=== PATIENT | male | born 1955 | race Caucasian/White ===

== ENCOUNTER → 2016-12-02 | Outpatient (CLI) | payer OTHER ==
[~2016-12-02] MED LIST: 'PARAFON FORTE500 M1 PO; CIPROFLOXACIN500 MG PO; FAMOTIDINE20 MG PO; LISINOPRIL20 MG PO; LOPRESSOR50 MG PO; MAPAP325 MG PO; MIRALAX POWDER17 G1 PO; NON-ASPIRIN325 MG PO; PYRIDIUM200 MG PO
== END | disposition home or self-care (01) ==
LOC: RAD 11:21
DX: M47.892 Other spondylosis, cervical region (principal)

== ENCOUNTER 2017-05-12 05:31 | Emergency (ER) | payer OTHER ==
[~2017-05-12] VITALS: Ht 175.2 cm; Wt 71.7 kg
[2017-05-12] MEDS ORDERED: METOPROLOL SUC100 M1 PO (05:43)
[2017-05-12] MEDS ORDERED: OMEPRAZOLE40 MG PO (05:43)
[2017-05-12] MEDS ORDERED: BENADRYL ALLERG25 M5 PO (07:37)
[2017-05-12] MEDS ORDERED: PERMETHRIN60 GM T (07:37)
[2017-05-12] MEDS ORDERED: NORCO 5-325 TA1 EACH PO (07:40)
== END 2017-05-12 07:40 | disposition home or self-care (01) ==
LOC: ED 05:31
DX: S52.572A Other intraarticular fracture of lower end of left radius, initial encounter for closed fracture (principal); I10 Essential (primary) hypertension; F17.200 Nicotine dependence, unspecified, uncomplicated; Z79.899 Other long term (current) drug therapy; Z88.6 Allergy status to analgesic agent; W00.0XXA Fall on same level due to ice and snow, initial encounter; Y93.89 Activity, other specified; Y92.89 Other specified places as the place of occurrence of the external cause; Y99.9 Unspecified external cause status

== ENCOUNTER → 2017-07-31 | Outpatient (CLI) | payer OTHER ==
[~2017-07-31] MED LIST changes: +BENADRYL ALLERG25 M5 PO; +METOPROLOL SUC100 M1 PO; +NORCO 5-325 TA1 EACH PO; +OMEPRAZOLE40 MG PO; +PERMETHRIN60 GM T
== END | disposition home or self-care (01) ==
LOC: RAD 11:51
DX: J44.9 Chronic obstructive pulmonary disease, unspecified (principal); I10 Essential (primary) hypertension; F17.200 Nicotine dependence, unspecified, uncomplicated

== ENCOUNTER → 2017-09-13 | Outpatient (CLI) | payer OTHER ==
[~2017-09-13] MED LIST changes: +HYDROCHLOROTHIA25 M1 PO; +VITAMIN D32000 UNIT PO
== END | disposition home or self-care (01) ==
LOC: CARD 03:03
DX: I10 Essential (primary) hypertension (principal); R06.02 Shortness of breath; R07.2 Precordial pain

== ENCOUNTER → 2017-09-14 | Outpatient (CLI) | payer OTHER ==
--- NOTE | ~2017-09-14 | ST ---
[place], [place] EXERCISE STRESS TEST REPORT NAME: ROBERT ACKERMAN UNIT #: [id number] ROOM: DOCTOR: CHI RICHTER MD BIRTHDATE: [birth year] DOS: 09/14/2017 INDICATIONS: Chest discomfort, dyspnea. PROCEDURE: The patient walked on a full Luis protocol for 8 minutes and stopped for fatigue. He achieved a maximum heart rate of 138, which represented 87% of his maximum predicted heart rate at a workload of 10.0 mets. He did not have any chest pain with the stress test. His monitor did show frequent PACs and PVCs with exercise, but no sustained arrhythmias. He had no diagnostic electrocardiographic changes. Sibley treadmill score is 8 consistent with a low risk for cardiac events. IMPRESSION: 1. Good exercise capacity. 2. Low risk exercise stress test. CHI RICHTER MD CM:STRESS:EXERCISE STRESS TEST REPORT [id number] CHI RICHTER MD
== END | disposition home or self-care (01) ==
LOC: CARD 02:20
DX: R06.02 Shortness of breath (principal); I10 Essential (primary) hypertension; R07.2 Precordial pain

== ENCOUNTER → 2019-11-07 | Outpatient (CLI) | payer OTHER ==
[2019-11-07 09:11] LABS: BASO # 0.1 10*3/uL (0.0-0.1); BASO % 0.6 % (0.0-1.0); EOS # 0.2 10*3/uL (0.0-0.4); EOS % 1.9 % (1.0-4.0); HEMATOCRIT 44.5 % (42.0-52.0); LYMPH # 2.2 10*3/uL (1.3-4.4); LYMPH % 24.6 % (27.0-41.0); MEAN CELL VOLUME 82.1 fl (80.0-94.0); MEAN CORPUSCULAR HGB 26.8 pg (27.0-31.0); MEAN CORPUSCULAR HGB CONC 32.6 g/dl (33.0-37.0); MEAN PLATELET VOLUME 9.2 fl (9.6-12.3); MONO # 0.8 10*3/uL (0.1-1.0); MONO % 8.3 % (3.0-9.0); NEUT # 5.8 10*3/uL (2.3-7.9); PLATELET COUNT AUTOMATED 414 10*3/uL (130-400); RED BLOOD COUNT 5.42 10*6/uL (4.50-5.90); RED CELL DISTRI WIDTH 14.5 % (0-14.5); WHITE BLOOD COUNT 9.1 10*3/uL (4.8-10.8)
[2019-11-07 09:21] LABS: ALBUMIN 3.8 gm/dl (3.1-4.5); ALKALINE PHOSPHATASE 114 U/L (45-117); BUN 12 mg/dl (7-24); CHLORIDE 97 mmol/L (98-107); CHOLESTEROL 200 mg/dL (<200); CREATININE 0.96 mg/dL (0.70-1.30); HDL CHOLESTEROL 35 mg/dl (40-60); LDL CHOLESTEROL 136 mg/dL (9-159); POTASSIUM 4.3 mmol/L (3.5-5.1); SGOT/AST 12 IU/L (3-35); SGPT/ALT 17 U/L (12-78); SODIUM 130 mmol/L (136-145); TOTAL PROTEIN 7.8 gm/dL (6.4-8.2); TRIGLYCERIDES 147 mg/dl (<150); VLDL CHOLESTEROL 29 mg/dL (6-40)
[2019-11-07 10:57] LABS: VITAMIN D, 25-HYDROXY 61.5 ng/mL (30-100)
== END ==
LOC: LAB 08:28
PROVIDERS: Nurse Practitioner Primary Care
DX: E55.9 Vitamin D deficiency, unspecified (principal); I10 Essential (primary) hypertension; E53.8 Deficiency of other specified B group vitamins

== ENCOUNTER → 2020-02-03 | Outpatient (CLI) | payer OTHER ==
[~2020-02-03] MED LIST changes: +NORVASC10 MG PO
== END | disposition home or self-care (01) ==
LOC: COVID19 00:38
PROVIDERS: ATTEND Internal Medicine Gastroenterology
DX: Z11.59 Encounter for screening for other viral diseases (principal)

== ENCOUNTER → 2020-02-07 | Day surgery (SDC) | payer OTHER ==
[~2020-02-07] VITALS: Ht 175.2 cm; Wt 68.0 kg
[2020-02-07 07:15] VITALS: BP 132/78
[2020-02-07 08:30] VITALS: BP 127/77
[2020-02-07 08:41] VITALS: BP 133/81
[2020-02-07 09:00] VITALS: BP 147/87
== END | disposition home or self-care (01) ==
LOC: SDC 02-03 09:30
PROVIDERS: ATTEND Internal Medicine Gastroenterology
DX: Z12.11 Encounter for screening for malignant neoplasm of colon (principal); K63.5 Polyp of colon; F32.9 Major depressive disorder, single episode, unspecified; K64.8 Other hemorrhoids; K57.30 Diverticulosis of large intestine without perforation or abscess without bleeding; Z86.010 Personal history of colon polyps; Z98.890 Other specified postprocedural states; Z79.899 Other long term (current) drug therapy; Z88.8 Allergy status to other drugs, medicaments and biological substances

== ENCOUNTER 2020-08-06 15:01 | Observation (INO) | payer OTHER ==
[~2020-08-06] VITALS: Ht 175.2 cm; Wt 80.4 kg
[2020-08-06 15:03] VITALS: BP 152/93
[2020-08-06 15:43] LABS: BASO # 0.1 10*3/uL (0.0-0.1); BASO % 0.6 % (0.0-1.0); EOS # 0.2 10*3/uL (0.0-0.4); EOS % 2.8 % (1.0-4.0); LYMPH # 1.4 10*3/uL (1.3-4.4); LYMPH % 16.6 % (27.0-41.0); MEAN CELL VOLUME 80.3 fl (80.0-94.0); MEAN CORPUSCULAR HGB 26.3 pg (27.0-31.0); MEAN CORPUSCULAR HGB CONC 32.7 g/dl (33.0-37.0); MEAN PLATELET VOLUME 8.8 fl (9.6-12.3); MONO # 0.7 10*3/uL (0.1-1.0); MONO % 8.6 % (3.0-9.0); NEUT # 5.8 10*3/uL (2.3-7.9); NEUT % 70.8 % (47.0-73.0); PLATELET COUNT AUTOMATED 366 10*3/uL (130-400); RED BLOOD COUNT 5.48 10*6/uL (4.50-5.90); WHITE BLOOD COUNT 8.2 10*3/uL (4.8-10.8)
[2020-08-06 15:59] LABS: ALBUMIN 3.7 gm/dl (3.1-4.5); ALKALINE PHOSPHATASE 99 U/L (45-117); BUN 10 mg/dl (7-24); CHLORIDE 98 mmol/L (98-107); CREATININE 0.85 mg/dL (0.70-1.30); POTASSIUM 4.7 mmol/L (3.5-5.1); SGOT/AST 16 IU/L (3-35); SGPT/ALT 19 U/L (12-78); SODIUM 133 mmol/L (136-145); TOTAL PROTEIN 7.3 gm/dL (6.4-8.2)
[2020-08-06 16:00] LABS: TROPONIN I < 0.015 ng/ml (<0.045)
[2020-08-06 17:15] VITALS: BP 138/84
[2020-08-06 18:30] VITALS: BP 143/80
[2020-08-06] MEDS ORDERED: VITAMIN C500 M5 PO (18:42)
[2020-08-06] MEDS ORDERED: FERROUS SULFAT325 MG PO (18:43)
[2020-08-06] MEDS ORDERED: TYLENOL EXTRA500 MG PO (18:44)
[2020-08-06] MEDS ORDERED: KENALOG 0.1%80 GM T (19:11)
[2020-08-06 20:00] VITALS: BP 120/75
[2020-08-07] VITALS: BP 123/74
[2020-08-07 06:16] LABS: BASO % 0.1 % (0.0-1.0); HEMATOCRIT 46.2 % (42.0-52.0); LYMPH # 0.9 10*3/uL (1.3-4.4); LYMPH % 11.4 % (27.0-41.0); MEAN CELL VOLUME 81.1 fl (80.0-94.0); MEAN PLATELET VOLUME 9.4 fl (9.6-12.3); MONO # 0.1 10*3/uL (0.1-1.0); MONO % 1.5 % (3.0-9.0); NEUT # 6.5 10*3/uL (2.3-7.9); NEUT % 86.5 % (47.0-73.0); PLATELET COUNT AUTOMATED 432 10*3/uL (130-400); RED CELL DISTRI WIDTH 15.9 % (0-14.5); WHITE BLOOD COUNT 7.6 10*3/uL (4.8-10.8)
[2020-08-07 06:19] LABS: CHLORIDE 101 mmol/L (98-107); POTASSIUM 4.1 mmol/L (3.5-5.1); SODIUM 133 mmol/L (136-145)
[2020-08-07 06:26] LABS: BUN 12 mg/dl (7-24); CREATININE 0.83 mg/dL (0.70-1.30)
[2020-08-07 12:00] VITALS: BP 125/74
[2020-08-07 16:00] VITALS: BP 112/65; BP 134/86
[2020-08-07 20:00] VITALS: BP 141/76
[2020-08-08] VITALS: BP 127/85
[2020-08-08 06:25] LABS: BUN 18 mg/dl (7-24); CHLORIDE 103 mmol/L (98-107); CREATININE 0.91 mg/dL (0.70-1.30); POTASSIUM 4.5 mmol/L (3.5-5.1); SODIUM 134 mmol/L (136-145)
[2020-08-08 08:00] VITALS: BP 140/80
[2020-08-08] MEDS ORDERED: DOXYCYCLINE100 M3 PO (10:27)
[2020-08-08] MEDS ORDERED: PREDNISONE10 MG PO (10:27)
== END 2020-08-08 12:02 | disposition home or self-care (01) ==
LOC: ED 15:01 → 5E 16:22 → EDHOLD 16:22 → 5E 18:03
PROVIDERS: Family Medicine; Physician Assistant; Student in an Organized Health Care Education/Training Program; ADMIT Student in an Organized Health Care Education/Training Program; ATTEND Student in an Organized Health Care Education/Training Program
DX: J44.1 Chronic obstructive pulmonary disease with (acute) exacerbation (principal); J96.01 Acute respiratory failure with hypoxia; R07.89 Other chest pain; E87.1 Hypo-osmolality and hyponatremia; F17.210 Nicotine dependence, cigarettes, uncomplicated; I10 Essential (primary) hypertension; R00.0 Tachycardia, unspecified; D47.3 Essential (hemorrhagic) thrombocythemia; E83.41 Hypermagnesemia; E16.2 Hypoglycemia, unspecified

== ENCOUNTER → 2021-05-05 | Outpatient (CLI) | payer OTHER ==
[~2021-05-05] MED LIST changes: +DOXYCYCLINE100 M3 PO; +FERROUS SULFAT325 MG PO; +KENALOG 0.1%80 GM T; +PREDNISONE10 MG PO; +TYLENOL EXTRA500 MG PO; +VITAMIN C500 M5 PO
== END ==
LOC: US 05-04 10:00
PROVIDERS: ATTEND Nurse Practitioner Primary Care
DX: R59.0 Localized enlarged lymph nodes (principal)

== ENCOUNTER 2021-12-15 10:58 | Emergency (ER) | payer OTHER ==
[~2021-12-15] VITALS: Wt 76.7 kg
[~2021-12-15 10:58] MED LIST changes: -CEPHALEXIN500 M1 PO
[2021-12-15 11:23] LABS: BILIRUBIN Negative (Negative); BLOOD 2+ (Negative); CLARITY Turbid (Clear); COLOR Yellow (Yellow); GLUCOSE Negative (Negative); KETONE Negative (Negative); LEUKO ESTERASE 3+ (Negative); NITRITE Negative (Negative); SPECIFIC GRAVITY 1.015 (1.001-1.030); UROBILINOGEN 0.2 E.U./dl (0.0-1.0)
[2021-12-15 11:37] LABS: BASO # 0.1 10*3/uL (0.0-0.1); BASO % 0.7 % (0.0-1.0); EOS # 0.3 10*3/uL (0.0-0.4); EOS % 3.6 % (1.0-4.0); HEMATOCRIT 40.1 % (42.0-52.0); LYMPH # 1.6 10*3/uL (1.3-4.4); LYMPH % 21.7 % (27.0-41.0); MEAN CELL VOLUME 90.7 fl (80.0-94.0); MEAN CORPUSCULAR HGB 29.9 pg (27.0-31.0); MEAN CORPUSCULAR HGB CONC 32.9 g/dl (33.0-37.0); MEAN PLATELET VOLUME 8.6 fl (9.6-12.3); MONO # 0.8 10*3/uL (0.1-1.0); MONO % 10.7 % (3.0-9.0); NEUT # 4.5 10*3/uL (2.3-7.9); NEUT % 62.7 % (47.0-73.0); PLATELET COUNT AUTOMATED 314 10*3/uL (130-400); RED BLOOD COUNT 4.42 10*6/uL (4.50-5.90); RED CELL DISTRI WIDTH 16.3 % (0-14.5); WHITE BLOOD COUNT 7.2 10*3/uL (4.8-10.8)
[2021-12-15 11:44] LABS: WBC TNTC wbc/hpf (0-5)
[2021-12-15 11:54] LABS: ALKALINE PHOSPHATASE 132 U/L (45-117); BUN 15 mg/dl (7-24); CHLORIDE 105 mmol/L (98-107); CREATININE 1.13 mg/dL (0.70-1.30); SGOT/AST 17 IU/L (3-35); SGPT/ALT 35 U/L (12-78); SODIUM 137 mmol/L (136-145)
[2021-12-15] MEDS ORDERED: CEPHALEXIN500 M1 PO (13:23)
== END 2021-12-15 13:26 | disposition home or self-care (01) ==
LOC: ED 10:58
PROVIDERS: Emergency Medicine
DX: N30.90 Cystitis, unspecified without hematuria (principal); F12.90 Cannabis use, unspecified, uncomplicated; F17.200 Nicotine dependence, unspecified, uncomplicated; Z90.89 Acquired absence of other organs; Z79.899 Other long term (current) drug therapy; Z88.6 Allergy status to analgesic agent

== ENCOUNTER → 2021-12-15 | Outpatient (CLI) | payer OTHER ==
[~2021-12-15] MED LIST changes: +CEPHALEXIN500 M1 PO; +CIPROFLOXACIN500 M4 PO; +FLOMAX0.4 MG PO; +NATURE'S BLEND F1 MG PO; +PEPCID20 MG PO; +SEPTDS PO
== END | disposition home or self-care (01) ==
LOC: US 10:22
PROVIDERS: ATTEND Family Medicine
DX: Z13.6 Encounter for screening for cardiovascular disorders (principal)

== ENCOUNTER → 2022-02-11 | Outpatient (CLI) | payer OTHER ==
[~2022-02-11] MED LIST changes: +CEPHALEXIN500 M1 PO
[2022-02-11 10:30] LABS: BILIRUBIN Negative (Negative); BLOOD Negative (Negative); CLARITY Cloudy (Clear); COLOR Yellow (Yellow); GLUCOSE Negative (Negative); KETONE Negative (Negative); LEUKO ESTERASE 2+ (Negative); NITRITE Positive (Negative); SPECIFIC GRAVITY 1.015 (1.001-1.030)
[2022-02-11 11:13] LABS: BACTERIA 3+; TRIP PHOS CRYSTALS 1+; WBC 21-30 wbc/hpf (0-5)
== END ==
LOC: LAB 09:27
PROVIDERS: ATTEND Nurse Practitioner Family
DX: N40.0 Benign prostatic hyperplasia without lower urinary tract symptoms (principal)

== ENCOUNTER → 2022-02-14 | Outpatient (CLI) | payer OTHER ==
[~2022-02-14] MED LIST changes: +CARVEDILOL12.5 MG PO; +LEVOFLOXACIN750 M2 PO; +PROVENTIL HFA6.7 GM INH; +SPIRIVA RESPIMAT4 GM INH; +SYMB160 INH; +TAMSULOSIN HCL0.4 MG PO
== END | disposition home or self-care (01) ==
LOC: LAB 10:53
PROVIDERS: ATTEND Internal Medicine
DX: D35.00 Benign neoplasm of unspecified adrenal gland (principal); Z79.899 Other long term (current) drug therapy

== ENCOUNTER → 2022-02-21 | Outpatient (CLI) | payer OTHER ==
[~2022-02-21] MED LIST changes: -CARVEDILOL12.5 MG PO; -LEVOFLOXACIN750 M2 PO; -PROVENTIL HFA6.7 GM INH; -SPIRIVA RESPIMAT4 GM INH; -SYMB160 INH; -TAMSULOSIN HCL0.4 MG PO
[2022-02-21 08:41] LABS: BUN 16 mg/dl (7-24); CHLORIDE 105 mmol/L (98-107); CHOLESTEROL 203 mg/dL (<200); CREATININE 0.83 mg/dL (0.70-1.30); POTASSIUM 4.4 mmol/L (3.5-5.1); SGOT/AST 7 IU/L (3-35); SGPT/ALT 16 U/L (12-78); SODIUM 140 mmol/L (136-145); TOTAL PROTEIN 7.6 gm/dL (6.4-8.2); TRIGLYCERIDES 144 mg/dl (<150); URIC ACID 5.7 mg/dL (3.5-7.2)
[2022-02-21 08:44] LABS: ALKALINE PHOSPHATASE 104 U/L (45-117); LDL CHOLESTEROL 128 mg/dL (9-159)
[2022-02-28 06:06] LABS: NORMETANEPHRINE, PLASMA 105.9 pg/mL (0.0-285.2)
== END ==
LOC: LAB 07:19
PROVIDERS: ATTEND Internal Medicine
DX: E27.8 Other specified disorders of adrenal gland (principal); N20.0 Calculus of kidney; E55.9 Vitamin D deficiency, unspecified; E66.3 Overweight

== ENCOUNTER 2022-03-08 12:00 | Inpatient (IN) | payer OTHER ==
[2022-03-08] VITALS (7 sets, daily range): BP systolic 106–145; BP diastolic 60–90
[~2022-03-08] VITALS: Ht 170.2 cm; Wt 79.9 kg
[2022-03-08 12:49] LABS: HEMATOCRIT 45.6 % (42.0-52.0); MANUAL DIFF REFLEX YES; MEAN CELL VOLUME 83.7 fl (80.0-94.0); MEAN CORPUSCULAR HGB 28.6 pg (27.0-31.0); MEAN CORPUSCULAR HGB CONC 34.2 g/dl (33.0-37.0); MEAN PLATELET VOLUME 9.2 fl (9.6-12.3); PLATELET COUNT AUTOMATED 387 10*3/uL (130-400); RED BLOOD COUNT 5.45 10*6/uL (4.50-5.90); RED CELL DISTRI WIDTH 12.4 % (0-14.5); WHITE BLOOD COUNT 17.3 10*3/uL (4.8-10.8)
[2022-03-08 12:59] LABS: ACT PARTIAL THROMBO TIME 26.8 SECONDS (20.0-32.1)
[2022-03-08 13:08] LABS: CREATININE 1.46 mg/dL (0.70-1.30); POTASSIUM 3.9 mmol/L (3.5-5.1); TOTAL PROTEIN 8.5 gm/dL (6.4-8.2)
[2022-03-08 13:09] LABS: ATYPICAL LYMPHS 1 % (0-0); PLATELET SUFFICIENCY NORMAL (NORMAL); POLYCHROMASIA SLIGHT; TOTAL CELLS COUNTED 100 #CELLS
[2022-03-08 13:12] LABS: BILIRUBIN Negative (Negative); BLOOD 1+ (Negative); CLARITY Turbid (Clear); COLOR Yellow (Yellow); GLUCOSE Negative (Negative); KETONE Trace (Negative); LEUKO ESTERASE 3+ (Negative); NITRITE Positive (Negative); SPECIFIC GRAVITY 1.015 (1.001-1.030); UROBILINOGEN 0.2 E.U./dl (0.0-1.0)
[2022-03-08 13:24] LABS: PH 8.5 (4.5-8.0)
[2022-03-08 13:26] LABS: BACTERIA 1+; WBC 21-30 wbc/hpf (0-5)
[2022-03-08] MEDS ORDERED: SPIRIVA RESPIMAT4 GM INH (16:27)
[2022-03-08] MEDS ORDERED: SYMB160 INH (16:29)
[2022-03-08] MEDS ORDERED: TAMSULOSIN HCL0.4 MG PO (16:29)
[2022-03-08] MEDS ORDERED: PROVENTIL HFA6.7 GM INH (16:30)
[2022-03-09 06:31] LABS: BASO % 0.1 % (0.0-1.0); EOS % 0.2 % (1.0-4.0); HEMATOCRIT 40.9 % (42.0-52.0); LYMPH # 1.8 10*3/uL (1.3-4.4); LYMPH % 16.3 % (27.0-41.0); MEAN CORPUSCULAR HGB 28.1 pg (27.0-31.0); MEAN PLATELET VOLUME 9.6 fl (9.6-12.3); MONO % 8.5 % (3.0-9.0); NEUT # 8.4 10*3/uL (2.3-7.9); NEUT % 74.5 % (47.0-73.0); PLATELET COUNT AUTOMATED 327 10*3/uL (130-400); RED BLOOD COUNT 4.81 10*6/uL (4.50-5.90); RED CELL DISTRI WIDTH 12.8 % (0-14.5); WHITE BLOOD COUNT 11.3 10*3/uL (4.8-10.8)
[2022-03-09 06:44] LABS: ALKALINE PHOSPHATASE 96 U/L (45-117); BUN 12 mg/dl (7-24); CHLORIDE 107 mmol/L (98-107); POTASSIUM 3.9 mmol/L (3.5-5.1); SGOT/AST 7 IU/L (3-35); SGPT/ALT 13 U/L (12-78); SODIUM 140 mmol/L (136-145); TOTAL PROTEIN 6.8 gm/dL (6.4-8.2)
[2022-03-09 06:45] LABS: ACT PARTIAL THROMBO TIME 27.9 SECONDS (20.0-32.1)
[2022-03-09 08:00] VITALS: BP 128/74
[2022-03-09 12:00] VITALS: BP 119/76
[2022-03-09 16:00] VITALS: BP 145/87
[2022-03-09 20:00] VITALS: BP 169/93
[2022-03-10] VITALS: BP 143/70
[2022-03-10 04:00] VITALS: BP 136/82
[2022-03-10 08:00] VITALS: BP 127/74; BP 131/77
[2022-03-10 12:00] VITALS: BP 110/49
[2022-03-10 16:00] VITALS: BP 137/77
[2022-03-10] MEDS ORDERED: LEVOFLOXACIN750 M2 PO (18:39)
[2022-03-10 20:00] VITALS: BP 131/81
[2022-03-11] VITALS: BP 137/83
[2022-03-11 08:00] VITALS: BP 130/90
[2022-03-11] MEDS ORDERED: CARVEDILOL12.5 MG PO (11:08)
== END 2022-03-11 13:44 | disposition home or self-care (01) | DRG 871 ==
LOC: ED 12:00 → EDHOLD 16:21 → 4E 16:21
PROVIDERS: Emergency Medicine; Family Medicine; ADMIT Internal Medicine; ATTEND Internal Medicine
DX: A41.9 Sepsis, unspecified organism (principal); N17.0 Acute kidney failure with tubular necrosis; N39.0 Urinary tract infection, site not specified; E87.1 Hypo-osmolality and hyponatremia; E87.20 Acidosis, unspecified; N13.8 Other obstructive and reflux uropathy; E44.0 Moderate protein-calorie malnutrition; R65.20 Severe sepsis without septic shock; N18.31 Chronic kidney disease, stage 3a; K21.9 Gastro-esophageal reflux disease without esophagitis; M16.11 Unilateral primary osteoarthritis, right hip; K59.00 Constipation, unspecified; J44.9 Chronic obstructive pulmonary disease, unspecified; N40.1 Benign prostatic hyperplasia with lower urinary tract symptoms; R31.9 Hematuria, unspecified; I12.9 Hypertensive chronic kidney disease with stage 1 through stage 4 chronic kidney disease, or unspecified chronic kidney disease; Z87.891 Personal history of nicotine dependence; Z85.118 Personal history of other malignant neoplasm of bronchus and lung; Z88.8 Allergy status to other drugs, medicaments and biological substances; Z68.27 Body mass index [BMI] 27.0-27.9, adult

== ENCOUNTER 2022-05-28 11:59 | Emergency (ER) | payer OTHER ==
[~2022-05-28] VITALS: Ht 170.1 cm; Wt 78.9 kg
[~2022-05-28 11:59] MED LIST changes: +CARVEDILOL12.5 MG PO; +LEVOFLOXACIN750 M2 PO; +PROVENTIL HFA6.7 GM INH; +SPIRIVA RESPIMAT4 GM INH; +SYMB160 INH; +TAMSULOSIN HCL0.4 MG PO
[2022-05-28 12:49] LABS: BASO # 0.1 10*3/uL (0.0-0.1); BASO % 0.8 % (0.0-1.0); EOS # 0.4 10*3/uL (0.0-0.4); EOS % 3.8 % (1.0-4.0); HEMATOCRIT 45.6 % (42.0-52.0); LYMPH # 2.3 10*3/uL (1.3-4.4); LYMPH % 22.9 % (27.0-41.0); MEAN CELL VOLUME 83.8 fl (80.0-94.0); MEAN CORPUSCULAR HGB 28.3 pg (27.0-31.0); MEAN CORPUSCULAR HGB CONC 33.8 g/dl (33.0-37.0); MEAN PLATELET VOLUME 9.1 fl (9.6-12.3); MONO # 0.9 10*3/uL (0.1-1.0); NEUT # 6.2 10*3/uL (2.3-7.9); PLATELET COUNT AUTOMATED 369 10*3/uL (130-400); RED BLOOD COUNT 5.44 10*6/uL (4.50-5.90); RED CELL DISTRI WIDTH 13.9 % (0-14.5); WHITE BLOOD COUNT 9.8 10*3/uL (4.8-10.8)
[2022-05-28 13:05] LABS: ALKALINE PHOSPHATASE 109 U/L (46-116); BUN 11 mg/dl (9-23); CHLORIDE 98 mmol/L (98-107); POTASSIUM 4.1 mmol/L (3.4-5.1); SGPT/ALT 11 U/L (10-49); TOTAL PROTEIN 7.9 gm/dL (6.0-8.0)
[2022-05-28 13:15] LABS: BILIRUBIN Negative (Negative); BLOOD 3+ (Negative); CLARITY Cloudy (Clear); COLOR Yellow (Yellow); GLUCOSE Negative (Negative); KETONE Negative (Negative); LEUKO ESTERASE 3+ (Negative); NITRITE Positive (Negative); UROBILINOGEN 0.2 E.U./dl (0.0-1.0)
[2022-05-28 13:26] LABS: BACTERIA 3+; WBC 31-40 wbc/hpf (0-5)
[2022-05-28 13:27] LABS: RBC 51-100 rbc/hpf (0-2)
[2022-05-28] MEDS ORDERED: MACROBID100 M1 PO (14:17)
== END 2022-05-28 15:05 | disposition home or self-care (01) ==
LOC: ED 11:59
PROVIDERS: Nurse Practitioner Family
DX: T83.038A Leakage of other urinary catheter, initial encounter (principal); N39.0 Urinary tract infection, site not specified; Z88.8 Allergy status to other drugs, medicaments and biological substances; Z90.89 Acquired absence of other organs; Z87.891 Personal history of nicotine dependence; Y84.8 Other medical procedures as the cause of abnormal reaction of the patient, or of later complication, without mention of misadventure at the time of the procedure; Y92.89 Other specified places as the place of occurrence of the external cause

== ENCOUNTER 2022-07-18 18:24 | Emergency (ER) | payer OTHER ==
[~2022-07-18] VITALS: Wt 77.1 kg
[~2022-07-18 18:24] MED LIST changes: +MACROBID100 M1 PO
[2022-07-18 22:53] LABS: BILIRUBIN Negative (Negative); BLOOD 3+ (Negative); CLARITY Clear (Clear); COLOR Yellow (Yellow); GLUCOSE Negative (Negative); KETONE Negative (Negative); LEUKO ESTERASE 3+ (Negative); NITRITE Negative (Negative); SPECIFIC GRAVITY 1.015 (1.001-1.030); UROBILINOGEN 0.2 E.U./dl (0.0-1.0)
[2022-07-18 23:10] LABS: BACTERIA 2+; RBC 41-50 rbc/hpf (0-2); WBC 21-30 wbc/hpf (0-5)
[2022-07-18] MEDS ORDERED: CIPRO500 MG PO (23:38)
== END 2022-07-18 23:40 | disposition home or self-care (01) ==
LOC: ED 18:24
PROVIDERS: Emergency Medicine
DX: T83.091A Other mechanical complication of indwelling urethral catheter, initial encounter (principal); N39.0 Urinary tract infection, site not specified; N40.0 Benign prostatic hyperplasia without lower urinary tract symptoms; J44.9 Chronic obstructive pulmonary disease, unspecified; K21.9 Gastro-esophageal reflux disease without esophagitis; M19.90 Unspecified osteoarthritis, unspecified site; I12.9 Hypertensive chronic kidney disease with stage 1 through stage 4 chronic kidney disease, or unspecified chronic kidney disease; N18.9 Chronic kidney disease, unspecified; Z90.89 Acquired absence of other organs; Z88.6 Allergy status to analgesic agent; Z98.890 Other specified postprocedural states; Z87.891 Personal history of nicotine dependence; Y84.6 Urinary catheterization as the cause of abnormal reaction of the patient, or of later complication, without mention of misadventure at the time of the procedure; Y92.89 Other specified places as the place of occurrence of the external cause

== ENCOUNTER 2022-07-20 08:37 | Emergency (ER) | payer OTHER ==
[~2022-07-20] VITALS: Wt 77.1 kg
[~2022-07-20 08:37] MED LIST changes: +CIPRO500 MG PO
[2022-07-20 09:37] LABS: BILIRUBIN Negative (Negative); BLOOD 3+ (Negative); CLARITY Turbid (Clear); COLOR Orange (Yellow); GLUCOSE Negative (Negative); KETONE Trace (Negative); LEUKO ESTERASE 3+ (Negative); NITRITE Positive (Negative)
[2022-07-20 10:03] LABS: PH >= 9.0 (4.5-8.0)
[2022-07-20 10:07] LABS: BASO % 0.2 % (0.0-1.0); EOS % 0.2 % (1.0-4.0); HEMATOCRIT 43.3 % (42.0-52.0); LYMPH # 1.7 10*3/uL (1.3-4.4); MEAN CELL VOLUME 82.5 fl (80.0-94.0); MEAN CORPUSCULAR HGB 28.8 pg (27.0-31.0); MEAN CORPUSCULAR HGB CONC 34.9 g/dl (33.0-37.0); MEAN PLATELET VOLUME 9.2 fl (9.6-12.3); MONO # 1.2 10*3/uL (0.1-1.0); MONO % 7.1 % (3.0-9.0); NEUT % 81.9 % (47.0-73.0); PLATELET COUNT AUTOMATED 356 10*3/uL (130-400); RED BLOOD COUNT 5.25 10*6/uL (4.50-5.90); RED CELL DISTRI WIDTH 13.3 % (0-14.5); WHITE BLOOD COUNT 17.1 10*3/uL (4.8-10.8)
[2022-07-20 10:08] LABS: BACTERIA 4+; RBC TNTC rbc/hpf (0-2); TRIP PHOS CRYSTALS 3+; WBC TNTC wbc/hpf (0-5)
[2022-07-20 10:33] LABS: ALKALINE PHOSPHATASE 99 U/L (46-116); BUN 15 mg/dl (9-23); CHLORIDE 100 mmol/L (98-107); TOTAL PROTEIN 7.4 gm/dL (6.0-8.0)
[2022-07-20 10:36] LABS: SGPT/ALT < 7 U/L (10-49)
[2022-07-20] MEDS ORDERED: CEFDINIR300 MG PO (10:53)
== END 2022-07-20 12:06 | disposition home or self-care (01) ==
LOC: ED 08:37
PROVIDERS: Emergency Medicine
DX: T83.038A Leakage of other urinary catheter, initial encounter (principal); N30.90 Cystitis, unspecified without hematuria; Z88.6 Allergy status to analgesic agent; Z90.89 Acquired absence of other organs; Z87.891 Personal history of nicotine dependence; I10 Essential (primary) hypertension; Y84.6 Urinary catheterization as the cause of abnormal reaction of the patient, or of later complication, without mention of misadventure at the time of the procedure; Y92.89 Other specified places as the place of occurrence of the external cause

== ENCOUNTER → 2022-08-01 | Outpatient (CLI) | payer OTHER ==
[~2022-08-01] MED LIST changes: +CEFDINIR300 MG PO
[2022-08-01 07:37] LABS: BUN 10 mg/dl (9-23); CHLORIDE 103 mmol/L (98-107)
== END | disposition home or self-care (01) ==
LOC: LAB 07:08
PROVIDERS: ATTEND Internal Medicine
DX: E55.9 Vitamin D deficiency, unspecified (principal); E27.8 Other specified disorders of adrenal gland; N20.0 Calculus of kidney

== ENCOUNTER 2022-10-04 08:36 | Inpatient (IN) | payer OTHER ==
[~2022-10-04] VITALS: Ht 170.1 cm; Wt 78.5 kg
[2022-10-04 08:51] VITALS: BP 125/82
[2022-10-04 09:16] LABS: BILIRUBIN Negative (Negative); BLOOD 2+ (Negative); CLARITY Turbid (Clear); COLOR Yellow (Yellow); GLUCOSE Negative (Negative); KETONE Negative (Negative); LEUKO ESTERASE 3+ (Negative); NITRITE Positive (Negative); PH 7.5 (4.5-8.0); SPECIFIC GRAVITY 1.015 (1.001-1.030); UROBILINOGEN 0.2 E.U./dl (0.0-1.0)
[2022-10-04 09:25] LABS: WBC TNTC wbc/hpf (0-5)
[2022-10-04 09:29] LABS: BASO # 0.1 10*3/uL (0.0-0.1); BASO % 0.3 % (0.0-1.0); EOS # 0.2 10*3/uL (0.0-0.4); EOS % 1.2 % (1.0-4.0); HEMATOCRIT 45.4 % (42.0-52.0); LYMPH # 1.9 10*3/uL (1.3-4.4); LYMPH % 12.4 % (27.0-41.0); MEAN CORPUSCULAR HGB 28.6 pg (27.0-31.0); MEAN CORPUSCULAR HGB CONC 33.3 g/dl (33.0-37.0); MEAN PLATELET VOLUME 8.9 fl (9.6-12.3); MONO % 6.2 % (3.0-9.0); NEUT # 12.1 10*3/uL (2.3-7.9); NEUT % 79.4 % (47.0-73.0); PLATELET COUNT AUTOMATED 442 10*3/uL (130-400); RED BLOOD COUNT 5.28 10*6/uL (4.50-5.90); RED CELL DISTRI WIDTH 13.6 % (0-14.5); WHITE BLOOD COUNT 15.3 10*3/uL (4.8-10.8)
[2022-10-04 09:39] LABS: ACT PARTIAL THROMBO TIME 29.2 SECONDS (20.0-32.1)
[2022-10-04 09:55] LABS: ALKALINE PHOSPHATASE 103 U/L (46-116); BUN 7 mg/dl (9-23); CHLORIDE 99 mmol/L (98-107); LIPASE 28 U/L (12-53); POTASSIUM 4.3 mmol/L (3.4-5.1); SGPT/ALT 9 U/L (10-49); TOTAL PROTEIN 7.6 gm/dL (6.0-8.0)
[2022-10-04] MEDS ORDERED: TOPCARE ARTHRI650 MG PO (10:33)
[2022-10-04 15:58] VITALS: BP 133/86
[2022-10-04 20:00] VITALS: BP 125/80
[2022-10-05] VITALS: BP 134/82
[2022-10-05 06:10] LABS: BUN 7 mg/dl (9-23); CHLORIDE 97 mmol/L (98-107)
[2022-10-05 06:23] LABS: BASO % 0.4 % (0.0-1.0); EOS # 0.1 10*3/uL (0.0-0.4); EOS % 1.2 % (1.0-4.0); HEMATOCRIT 42.4 % (42.0-52.0); LYMPH # 2.1 10*3/uL (1.3-4.4); LYMPH % 23.6 % (27.0-41.0); MEAN CELL VOLUME 84.6 fl (80.0-94.0); MEAN CORPUSCULAR HGB 28.7 pg (27.0-31.0); MEAN PLATELET VOLUME 9.1 fl (9.6-12.3); MONO # 0.9 10*3/uL (0.1-1.0); MONO % 9.5 % (3.0-9.0); NEUT # 5.8 10*3/uL (2.3-7.9); NEUT % 64.6 % (47.0-73.0); PLATELET COUNT AUTOMATED 391 10*3/uL (130-400); RED BLOOD COUNT 5.01 10*6/uL (4.50-5.90); RED CELL DISTRI WIDTH 13.4 % (0-14.5); WHITE BLOOD COUNT 9.1 10*3/uL (4.8-10.8)
[2022-10-05 08:00] VITALS: BP 138/88; BP 142/91
[2022-10-05 12:00] VITALS: BP 142/87
[2022-10-05 16:00] VITALS: BP 145/68
[2022-10-05 20:00] VITALS: BP 130/84
[2022-10-06] VITALS: BP 136/84
[2022-10-06 08:00] VITALS: BP 118/75
[2022-10-06 12:00] VITALS: BP 124/82
[2022-10-06 16:00] VITALS: BP 141/77
[2022-10-06 20:00] VITALS: BP 116/66
[2022-10-07] VITALS: BP 108/66
[2022-10-07 08:00] VITALS: BP 112/83
[2022-10-07] MEDS ORDERED: FLAVOXATE HCL100 MG PO (11:55)
[2022-10-07] MEDS ORDERED: CIPROFLOXACIN500 M4 PO (11:55)
[2022-10-07] MEDS ORDERED: FERROUS SULFAT325 MG PO (11:55)
[2022-10-07 12:00] VITALS: BP 151/78
== END 2022-10-07 15:29 | disposition home or self-care (01) | DRG 690 ==
LOC: ED 08:36 → 4E 09:53 → EDHOLD 09:53 → 4E 15:17
PROVIDERS: Emergency Medicine; Registered Nurse; ADMIT Internal Medicine; ATTEND Internal Medicine
DX: N30.01 Acute cystitis with hematuria (principal); E87.1 Hypo-osmolality and hyponatremia; R54 Age-related physical debility; K21.9 Gastro-esophageal reflux disease without esophagitis; D75.839 Thrombocytosis, unspecified; D72.829 Elevated white blood cell count, unspecified; I10 Essential (primary) hypertension; J44.9 Chronic obstructive pulmonary disease, unspecified; R33.9 Retention of urine, unspecified; N40.1 Benign prostatic hyperplasia with lower urinary tract symptoms; F12.90 Cannabis use, unspecified, uncomplicated; Z88.8 Allergy status to other drugs, medicaments and biological substances; Z87.891 Personal history of nicotine dependence; Z85.118 Personal history of other malignant neoplasm of bronchus and lung; Z92.21 Personal history of antineoplastic chemotherapy

== ENCOUNTER → 2022-11-01 | Outpatient (CLI) | payer OTHER ==
[~2022-11-01] MED LIST changes: +FLAVOXATE HCL100 MG PO; +TOPCARE ARTHRI650 MG PO
[2022-11-01 15:38] LABS: BILIRUBIN Negative (Negative); BLOOD 2+ (Negative); CLARITY Turbid (Clear); COLOR Yellow (Yellow); GLUCOSE Negative (Negative); KETONE Negative (Negative); LEUKO ESTERASE 3+ (Negative); NITRITE Positive (Negative); UROBILINOGEN 0.2 E.U./dl (0.0-1.0)
[2022-11-01 15:51] LABS: BACTERIA 3+; EPITHELIAL CELLS 0-2; WBC TNTC wbc/hpf (0-5)
== END | disposition home or self-care (01) ==
LOC: LAB 15:16
PROVIDERS: ATTEND Nurse Practitioner Family
DX: R39.89 Other symptoms and signs involving the genitourinary system (principal)

== ENCOUNTER → 2023-01-16 | Outpatient (CLI) | payer OTHER ==
[2023-01-16 07:59] LABS: BUN 8 mg/dl (9-23); CHLORIDE 102 mmol/L (98-107); POTASSIUM 4.5 mmol/L (3.4-5.1); URIC ACID 5.7 mg/dL (3.7-9.2)
== END | disposition home or self-care (01) ==
LOC: LAB 07:10
PROVIDERS: ATTEND Internal Medicine
DX: E55.9 Vitamin D deficiency, unspecified (principal); E27.8 Other specified disorders of adrenal gland; N20.0 Calculus of kidney

== ENCOUNTER → 2023-02-09 | Outpatient (CLI) | payer OTHER | END | disposition home or self-care (01) | LOC: LAB 09:19 | PROVIDERS: ATTEND Internal Medicine | DX: E27.8 Other specified disorders of adrenal gland (principal) ==

== ENCOUNTER → 2023-02-20 | Outpatient (CLI) | payer OTHER | END | disposition home or self-care (01) | LOC: LAB 07:40 | PROVIDERS: ATTEND Internal Medicine | DX: E34.9 Endocrine disorder, unspecified (principal) ==

== ENCOUNTER → 2023-02-21 | Outpatient (CLI) | payer OTHER | END | disposition home or self-care (01) | LOC: LAB 07:24 | PROVIDERS: ATTEND Internal Medicine | DX: E34.9 Endocrine disorder, unspecified (principal) ==

== ENCOUNTER → 2023-03-15 | Outpatient (CLI) | payer OTHER | END | disposition home or self-care (01) | LOC: RAD 07:42 | PROVIDERS: ATTEND Nurse Practitioner Family | DX: N20.0 Calculus of kidney (principal) ==

== ENCOUNTER → 2023-07-03 | Outpatient (CLI) | payer OTHER ==
[2023-07-03 08:13] LABS: BUN 8 mg/dl (9-23); CHLORIDE 104 mmol/L (98-107); POTASSIUM 4.7 mmol/L (3.4-5.1)
[2023-07-03 08:16] LABS: VITAMIN D, 25-HYDROXY 57.2 ng/mL (30-100)
== END | disposition home or self-care (01) ==
LOC: LAB 07:23
PROVIDERS: ATTEND Internal Medicine
DX: N20.0 Calculus of kidney (principal); N40.0 Benign prostatic hyperplasia without lower urinary tract symptoms; E27.8 Other specified disorders of adrenal gland; E55.9 Vitamin D deficiency, unspecified

== ENCOUNTER → 2023-09-26 | Outpatient (CLI) | payer OTHER ==
[~2023-09-26] MED LIST changes: +MUCUS RELIEF600 MG PO; +ZITHROMAX250 MG PO
== END | disposition home or self-care (01) ==
LOC: LAB 07:30
PROVIDERS: ATTEND Nurse Practitioner Family
DX: N52.9 Male erectile dysfunction, unspecified (principal)

== ENCOUNTER → 2024-01-01 | Outpatient (CLI) | payer OTHER ==
[2024-01-01 08:13] LABS: BUN 12 mg/dl (9-23); CHLORIDE 102 mmol/L (98-107); POTASSIUM 4.6 mmol/L (3.4-5.1); URIC ACID 5.2 mg/dL (3.7-9.2)
[2024-01-01 08:22] LABS: VITAMIN D, 25-HYDROXY 63.7 ng/mL (30-100)
== END | disposition home or self-care (01) ==
LOC: LAB 07:15
PROVIDERS: ATTEND Internal Medicine
DX: N40.0 Benign prostatic hyperplasia without lower urinary tract symptoms (principal); N20.0 Calculus of kidney; E27.8 Other specified disorders of adrenal gland; E24.9 Cushing's syndrome, unspecified; Z79.899 Other long term (current) drug therapy; E55.9 Vitamin D deficiency, unspecified

== ENCOUNTER → 2024-01-05 | Outpatient (CLI) | payer OTHER | END | disposition home or self-care (01) | LOC: CARD 00:30 | PROVIDERS: ATTEND Internal Medicine | DX: R00.2 Palpitations (principal); R00.0 Tachycardia, unspecified; R00.1 Bradycardia, unspecified ==

== ENCOUNTER → 2024-02-07 | Outpatient (CLI) | payer OTHER | END | disposition home or self-care (01) | LOC: CARD 00:45 | PROVIDERS: ATTEND Internal Medicine | DX: R06.09 Other forms of dyspnea (principal); R06.02 Shortness of breath ==

== ENCOUNTER → 2024-02-19 | Outpatient (CLI) | payer OTHER ==
[~2024-02-19] MED LIST changes: +Regadenoson 0.4 MG/5 ML SYR IV ONE; +Technetium Tc 99M Tetrofosmi 0.23 MG KIT IJ SCH
== END | disposition home or self-care (01) ==
LOC: CARD 00:42
PROVIDERS: ATTEND Internal Medicine Cardiovascular Disease
DX: R06.02 Shortness of breath (principal); R07.9 Chest pain, unspecified

== ENCOUNTER → 2024-08-05 | Outpatient (CLI) | payer OTHER ==
[~2024-08-05] MED LIST changes: +BREYNA 160-4.10.3 GM INH; +CARVEDILOL25 MG PO; +CETIRIZINE10 MG PO; +MUCUS RELIEF E600 MG PO; +OMNICEF300 MG PO; +PREDNISONE50 MG PO; -Regadenoson 0.4 MG/5 ML SYR IV ONE; -Technetium Tc 99M Tetrofosmi 0.23 MG KIT IJ SCH
[2024-08-05 07:48] LABS: BUN 17 mg/dl (9-23); CHLORIDE 105 mmol/L (98-107); POTASSIUM 4.7 mmol/L (3.4-5.1); URIC ACID 5.9 mg/dL (3.7-9.2)
[2024-08-05 08:01] LABS: VITAMIN D, 25-HYDROXY 58.4 ng/mL (30-100)
== END | disposition home or self-care (01) ==
LOC: LAB 07:00
PROVIDERS: ATTEND Internal Medicine
DX: N20.0 Calculus of kidney (principal); E27.8 Other specified disorders of adrenal gland; N40.0 Benign prostatic hyperplasia without lower urinary tract symptoms; E24.9 Cushing's syndrome, unspecified; E55.9 Vitamin D deficiency, unspecified; Z79.899 Other long term (current) drug therapy

== ENCOUNTER → 2024-09-04 | Outpatient (CLI) | payer OTHER | END | disposition home or self-care (01) | LOC: US 04:14 | PROVIDERS: ATTEND Internal Medicine | DX: R10.11 Right upper quadrant pain (principal) ==

== ENCOUNTER → 2024-11-27 | Outpatient (CLI) | payer OTHER | END | disposition home or self-care (01) | LOC: US 07:57 | PROVIDERS: ATTEND Internal Medicine Hematology & Oncology | DX: N28.1 Cyst of kidney, acquired (principal); N20.0 Calculus of kidney; C34.31 Malignant neoplasm of lower lobe, right bronchus or lung; R91.8 Other nonspecific abnormal finding of lung field; D52.1 Drug-induced folate deficiency anemia; D70.2 Other drug-induced agranulocytosis; Z45.2 Encounter for adjustment and management of vascular access device; Z72.0 Tobacco use ==

== ENCOUNTER → 2025-01-27 | Outpatient (CLI) | payer OTHER ==
[2025-01-27 08:39] LABS: VITAMIN D, 25-HYDROXY 66.4 ng/mL (30-100)
== END | disposition home or self-care (01) ==
LOC: LAB 07:14
PROVIDERS: ATTEND Internal Medicine
DX: N40.0 Benign prostatic hyperplasia without lower urinary tract symptoms (principal); N20.0 Calculus of kidney; E55.9 Vitamin D deficiency, unspecified

== ENCOUNTER → 2025-01-30 | Outpatient (CLI) | payer OTHER | END | disposition home or self-care (01) | LOC: CT 03:50 | PROVIDERS: ATTEND Internal Medicine Hematology & Oncology | DX: J43.8 Other emphysema (principal); D70.2 Other drug-induced agranulocytosis; D35.01 Benign neoplasm of right adrenal gland; D52.1 Drug-induced folate deficiency anemia; C34.31 Malignant neoplasm of lower lobe, right bronchus or lung; R91.8 Other nonspecific abnormal finding of lung field; I70.0 Atherosclerosis of aorta; Z72.0 Tobacco use; Z45.2 Encounter for adjustment and management of vascular access device ==